=== PATIENT | female | born 2000 | race Caucasian/White ===

== ENCOUNTER 2021-10-03 00:48 | Observation (INO) ==
[2021-10-03] MEDS ORDERED: MoRPHine SULFATE 4 MG/ML 1 ML CARP\\VIAL IV STA (01:04)
[2021-10-03] MEDS ORDERED: ONDANSETRON INJ 2 MG/ML 2 ML VIAL IV STA (01:04)
--- NOTE | 2021-10-03 01:18 | Emergency Department Note ---
History of Present Illness General Chief complaint: Abdominal Pain Stated complaint: ABDOMINAL PAIN UNDER RIBS,RT SHOULDER PAIN Time Seen by Provider: 10/03/21 00:56 Source: patient Mode of arrival: ambulatory Limitations: no limitations History of Present Illness Maximum Pain Intensity: 10 Patient is a 21-year-old female who presents to the emergency department for evaluation of right-sided abdominal/rib pain. Patient reports that this started about 1 week ago. She reports severe pain rated a 10/10. Pain is worse with a deep breath and she states she is now unable to take a deep breath. She states that 1 month ago, she had "a charley horse" in her left thigh. She does admit she started a new control pill prior to the onset of the symptoms. She stopped that once she developed this pain. She denies any history or family history of blood clots. She is not a smoker but does vape. She denies recent travel or immobilization. Home Medications Medication Instructions Recorded Confirmed Type No Known Home Medications 07/20/19 09/30/21 History Allergies Allergy/AdvReac Type Severity Reaction Status Date / Time cefdinir [From Omnicef] Allergy Mild Rash Verified 10/03/21 06:04 Past Med/Surg History Medical History No pertinent past medical history Surgical History No pertinent past surgical history Social History Smoking Status: Current every day smoker Tobacco Type: E-cigarettes / Vaping Second Hand Exposure: No; Do You Dip or Chew Tobacco: No; Tobacco Cessation Education Requested by Patient: No Hx Alcohol Use: Yes Alcohol type: wine and hard liquor Hx Substance Use: Yes (medical card) Last Used Substance: Just Prior to Arrival Preferred Language: Nepali Communication Ability: Effective Control Officer Manager Required: No Beliefs That Will Affect Care: None Current Living Situation: Other Current Living Situation Comment: roomate Other Information That Helps Us Care for You: No Feels Safe at Home: Yes Safety Concerns: Feels Safe At This Time Assistive Devices: None Review of Systems A total of 10 systems reviewed and were otherwise negative Physical Exam Vital Signs Vital Signs - 24 hr 10/03/21 00:49 10/03/21 01:22 10/03/21 01:37 Temperature 37 C Temperature Source Temporal Artery Scan Pulse Rate 99 H Pulse Strength Normal Respiratory Rate 20 22 Respiratory Effort / Characteristics Non-Labored Respiratory Depth Normal Normal Respiratory Pattern Regular Blood Pressure 123/68 Blood Pressure [Right Arm] 125/88 Blood Pressure Mean 86 Blood Pressure Mean [Right Arm] 100 Blood Pressure Position Sitting Blood Pressure Position [Right Arm] Sitting Pulse Oximetry 98 97 Oxygen Delivery Method Room Air Room Air Room Air Sepsis Recent Fever Within 48 Hours No Sepsis New/Unexplained Change in Mental Status N/A Sepsis Action Taken by Nursing No Action Required 10/03/21 03:00 Temperature Temperature Source Pulse Rate Pulse Strength Respiratory Rate 18 Respiratory Effort / Characteristics Non-Labored Respiratory Depth Normal Respiratory Pattern Regular Blood Pressure Blood Pressure [Right Arm] 114/73 Blood Pressure Mean Blood Pressure Mean [Right Arm] 86 Blood Pressure Position Blood Pressure Position [Right Arm] Sitting Pulse Oximetry 95 Oxygen Delivery Method Room Air Sepsis Recent Fever Within 48 Hours Sepsis New/Unexplained Change in Mental Status Sepsis Action Taken by Nursing VITALS: Vitals are noted on the nurse's note and reviewed by myself. GENERAL: This is a 21-year-old female, crying, holding her right side, uncomfortable appearing. SKIN: The skin was without rashes. EARS: External auditory canals clear, tympanic membranes pearly swanson without erythema or effusion bilaterally. EYES: Pupils equal round and reactive to light and accommodation. MOUTH: Mucous membranes moist. NECK: Supple without nuchal rigidity. HEART: Regular rate and rhythm without murmurs gallops or rubs. LUNGS: Clear to auscultation bilaterally without wheezes, rales or rhonchi. No retractions or accessory muscle use. ABDOMEN: Positive bowel sounds x 4. Noticed to palpation in the right upper quadrant. NEURO: Patient was alert and oriented to person place and time. Course Consultations Consultation #1: Dr. Hirsch - general surgery Time: 03:10 Administered Medications Lactated Ringer's (Lr) 1,000 mls @ 125 mls/hr IV .Q8H LELA Stop: 11/02/21 05:23 Last Admin: 10/03/21 05:46 Dose: 125 mls/hr Documented by: [id number] Discontinued Medications Hydromorphone HCl (Hydromorphone Inj 0.5 Mg/0.5 Ml Syr) 0.5 mg IV NOW STA Stop: 10/03/21 02:07 Last Admin: 10/03/21 02:09 Dose: 0.5 mg Documented by: [id number] Ampicillin Sodium/Sulbactam Sodium 3,000 mg/ Sodium Chloride 108 mls @ 200 mls/hr IV NOW STA; Protocol Stop: 10/03/21 03:47 Last Infusion: 10/03/21 04:35 Dose: 0 mls/hr Documented by: [id number] Admin: 10/03/21 03:35 Dose: 200 mls/hr Documented by: [id number] Sodium Chloride (Nss 1000ml) 1,000 mls @ 999 mls/hr IV .Q1H1M ONE Stop: 10/03/21 05:04 Last Infusion: 10/03/21 05:10 Dose: 0 mls/hr Documented by: [id number] Admin: 10/03/21 04:35 Dose: 999 mls/hr Documented by: [id number] Ioversol (Optiray 320 125ml) 125 ml IV ONCE ONE Stop: 10/03/21 02:07 Last Admin: 10/03/21 02:07 Dose: 117 ml Documented by: [id number] Morphine Sulfate (Morphine Sulfate 4 Mg/Ml 1 Ml Carp\\Vial) 4 mg IV NOW STA Stop: 10/03/21 01:05 Last Admin: 10/03/21 01:21 Dose: 4 mg Documented by: [id number] Ondansetron HCl (Ondansetron Inj 2 Mg/Ml 2 Ml Vial) 4 mg IV NOW STA Stop: 10/03/21 01:05 Last Admin: 10/03/21 01:21 Dose: 4 mg Documented by: [id number] Medical Decision Making Differential Diagnosis Differential diagnosis includes PE, pneumonia, herpes zoster, cholecystitis, choledocholithiasis, pancreatitis, hepatitis, bowel obstruction, ovarian torsion, ectopic , among others. Home Medications Current Medication List: was personally reviewed by me Laboratory Data Attestation: I reviewed the patient's lab results. Result diagrams: 10/03/21 01:24 10/03/21 01:24 Lab Results 10/03/21 10/03/21 10/03/21 Range/Units 01:24 01:24 01:24 WBC 12.18 H (4.8-10.8) K/uL RBC 4.58 (4.2-5.4) M/uL Hgb 13.3 (12.0-16.0) g/dL Hct 40.1 (37-47) % MCV 87.6 (80-100) fL MCH 29.0 (25-34) pg MCHC 33.2 (32-36) g/dL RDW Std Deviation 43.5 (36.4-46.3) fL RDW Coeff of Yahir 13.6 (11.5-14.5) % Plt Count 366 (130-400) K/uL MPV 10.8 H (7.4-10.4) fL Immature Gran % (Auto) 0.2 % Neut % (Auto) 69.2 % Lymph % (Auto) 18.1 % Sevier % (Auto) 8.9 % Eos % (Auto) 3.4 % Baso % (Auto) 0.2 % Neut # (Auto) 8.41 H (1.4-6.5) K/uL Lymph # (Auto) 2.21 (1.2-3.4) K/uL Sevier # (Auto) 1.09 H (0.11-0.59) K/uL Eos # (Auto) 0.41 (0-0.5) K/uL Baso # (Auto) 0.03 (0-0.2) K/uL Immature Gran # (Auto) 0.03 H (0.00-0.02) K/uL Sodium 136 (136-145) mmol/L Potassium 3.5 (3.5-5.1) mmol/L Chloride 103 (98-107) mmol/L Carbon Dioxide 26 (21-32) mmol/L Anion Gap 7 (3-11) BUN 10 (6-23) mg/dl Creatinine 0.60 (0.6-1.2) mg/dl Est Cr Clr Drug Dosing 130.2 ml/min Est GFR ( Amer) 148.9 ml/min Est GFR (Non-Af Amer) 128.5 ml/min BUN/Creatinine Ratio 16.7 (10-20) Glucose 91 (70-99(Fasting)) mg/dl Calcium 9.3 (8.5-10.1) mg/dl Total Bilirubin 0.5 (0.2-1.0) mg/dl AST 13 (13-39) U/L ALT 12 (7-52) U/L Alkaline Phosphatase 76 (34-104) U/L Troponin I High Sens < 2.3 (0-14) pg/ml Total Protein 7.9 (6.0-8.3) gm/dl Albumin 3.9 (3.4-5.0) gm/dl Globulin 4.0 (2.5-4.0) gm/dl Albumin/Globulin Ratio 1.0 (0.9-2) Lipase 13 (11-82) U/L HCG, Qual Negative (Negative) Urine Color Urine Appearance (Clear) Urine pH (4.5-7.5) Ur Specific [place] (1.000-1.030) Urine Protein (Negative) Urine Glucose (UA) (Negative) Urine Ketones (Negative) Urine Blood (Negative) Urine Nitrite (Negative) Urine Bilirubin (Negative) Urine Urobilinogen (Negative) Ur Leukocyte Esterase (Negative) Urine WBC (Auto) (0-5) /hpf Urine RBC (Auto) (0-4) /hpf U Hyaline Cast (Auto) (0-5) /lpf U Epithel Cells (Auto) (0-5) /lpf Urine Bacteria (Auto) (Negative) 10/03/21 Range/Units 02:36 WBC (4.8-10.8) K/uL RBC (4.2-5.4) M/uL Hgb (12.0-16.0) g/dL Hct (37-47) % MCV (80-100) fL MCH (25-34) pg MCHC (32-36) g/dL RDW Std Deviation (36.4-46.3) fL RDW Coeff of Yahir (11.5-14.5) % Plt Count (130-400) K/uL MPV (7.4-10.4) fL Immature Gran % (Auto) % Neut % (Auto) % Lymph % (Auto) % Sevier % (Auto) % Eos % (Auto) % Baso % (Auto) % Neut # (Auto) (1.4-6.5) K/uL Lymph # (Auto) (1.2-3.4) K/uL Sevier # (Auto) (0.11-0.59) K/uL Eos # (Auto) (0-0.5) K/uL Baso # (Auto) (0-0.2) K/uL Immature Gran # (Auto) (0.00-0.02) K/uL Sodium (136-145) mmol/L Potassium (3.5-5.1) mmol/L Chloride (98-107) mmol/L Carbon Dioxide (21-32) mmol/L Anion Gap (3-11) BUN (6-23) mg/dl Creatinine (0.6-1.2) mg/dl Est Cr Clr Drug Dosing ml/min Est GFR ( Amer) ml/min Est GFR (Non-Af Amer) ml/min BUN/Creatinine Ratio (10-20) Glucose (70-99(Fasting)) mg/dl Calcium (8.5-10.1) mg/dl Total Bilirubin (0.2-1.0) mg/dl AST (13-39) U/L ALT (7-52) U/L Alkaline Phosphatase (34-104) U/L Troponin I High Sens (0-14) pg/ml Total Protein (6.0-8.3) gm/dl Albumin (3.4-5.0) gm/dl Globulin (2.5-4.0) gm/dl Albumin/Globulin Ratio (0.9-2) Lipase (11-82) U/L HCG, Qual (Negative) Urine Color Yellow Urine Appearance Clear (Clear) Urine pH 6.5 (4.5-7.5) Ur Specific [place] > 1.030 H (1.000-1.030) Urine Protein Trace H (Negative) Urine Glucose (UA) Negative (Negative) Urine Ketones 1+ H (Negative) Urine Blood Trace H (Negative) Urine Nitrite Negative (Negative) Urine Bilirubin Negative (Negative) Urine Urobilinogen Negative (Negative) Ur Leukocyte Esterase Negative (Negative) Urine WBC (Auto) 5-10 H (0-5) /hpf Urine RBC (Auto) 0-4 (0-4) /hpf U Hyaline Cast (Auto) 0 (0-5) /lpf U Epithel Cells (Auto) >30 H (0-5) /lpf Urine Bacteria (Auto) Negative (Negative) Imaging Data Attestation: I personally reviewed and interpreted this imaging study as follows: Radiologist's Impression: CT ABDOMEN & PELVIS With Contrast: Inflammatory changes and trace free fluid are visualized in the right lower quadrant surrounding the appendix which is mildly dilated to 7 mm, suspicious for acute appendicitis. Inflammatory changes extend into the anterior pelvis and cranially along the right paracolic gutter. There is a punctate extraluminal 3 mm calcification anterior to the appendix which raises the possibility of a contained perforation, however no extraluminal gas is present. No definite organized abscess is seen. Borderline wall thickening of the ascending colon may be reactive versus due to underlying colitis. No radiodense gallstones or gallbladder distention. No hydronephrosis. Liver, pancreas, adrenal glands and spleen are unremarkable. CTA CHEST: No evidence of PE. Lungs are clear. No pleural effusions. No adenopathy. Heart size is normal. Aorta is unremarkable. Radiologist:Caryn Sanderson M.D. ECG Data Attestation: I personally reviewed and interpreted this ECG as follows: Indication: + chest pain Rate (beats per minute): 88 Rhythm: + normal sinus ECG Intervals/blocks: + Normal QRS ECG ST segments: + Nonspecific ST abnormalities Comparison ECG Date: no prior available MDM Narrative Continuous monitor car operator: Order was placed for continuous monitor car operator. Patient was placed on the monitor car operator. Patient was noted to be in normal sinus rhythm at an initial rate of 90 bpm. The patient is a 21-year-old female who presents today complaining of right- sided rib/abdominal pain. I was initially suspicious for PE, as patient stated she had recent cramping in her thigh, shoulder pain and had recently started a control pill. Labs revealed a leukocytosis of 12,000, but were otherwise unremarkable. CT of the chest and abdomen/pelvis were performed. Patient was actually found to have acute appendicitis, could not rule out a small contained perforation. I discussed the case with the general surgeon on-call, Dr. Hirsch, who agreed to evaluate the patient and take her to the OR in the morning. She was given a dose of Unasyn. She does have a listed allergy to cefdinir but states that she has taken penicillins in the past without any difficulty. Patient was informed of all findings. Impression & Plan Acute appendicitis Discharge Plan Visit Data Chief Complaint: Abdominal Pain Stated Complaint: ABDOMINAL PAIN UNDER RIBS,RT SHOULDER PAIN ED Midlevel Provider: Jania Jessica Discharge Problem: Acute appendicitis Patient Disposition: Admitted As Inpatient Discharge Instructions Interventions: ED Discharge Assessment Last Done: 10/03/21 05:08
[2021-10-03 01:39] LABS: Basophils # (auto) 0.03 K/uL (0-0.2); Basophils % (auto) 0.2 %; Eosinophils # (auto) 0.41 K/uL (0-0.5); Eosinophils % (auto) 3.4 %; Hematocrit (blood only) 40.1 % (37-47); Hemoglobin 13.3 g/dL (12.0-16.0); Immature Granulocytes # (auto) 0.03 K/uL (0.00-0.02); Immature Granulocytes % (auto) 0.2 %; Lymphocytes # (auto) 2.21 K/uL (1.2-3.4); Lymphocytes % (auto) 18.1 %; Mean Corpuscular Hgb Conc 33.2 g/dL (32-36); Mean Corpuscular Volume 87.6 fL (80-100); Mean Platelet Volume 10.8 fL (7.4-10.4); Monocytes # (auto) 1.09 K/uL (0.11-0.59); Monocytes % (auto) 8.9 %; Neutrophils # (auto) 8.41 K/uL (1.4-6.5); Neutrophils % (auto) 69.2 %; Platelet Count 366 K/uL (130-400); RDW Coefficient of Variation 13.6 % (11.5-14.5); RDW Standard Deviation 43.5 fL (36.4-46.3); Red Blood Count 4.58 M/uL (4.2-5.4); White Blood Count 12.18 K/uL (4.8-10.8)
[2021-10-03 02:02] LABS: Alanine Aminotransferase 12 U/L (7-52); Albumin Level 3.9 gm/dl (3.4-5.0); Alkaline Phosphatase 76 U/L (34-104); Anion Gap 7 (3-11); Aspartate Aminotransferase 13 U/L (13-39); BUN Creatinine Ratio 16.7 (10-20); Bilirubin,Total 0.5 mg/dl (0.2-1.0); Blood Urea Nitrogen 10 mg/dl (6-23); Calcium 9.3 mg/dl (8.5-10.1); Carbon Dioxide 26 mmol/L (21-32); Chloride 103 mmol/L (98-107); Creatinine Clr Calc Pharmacy 130.2 ml/min; Est GFR (African American) 148.9 ml/min; Est GFR (Non-African American) 128.5 ml/min; Glucose 91 mg/dl (70-99(Fasting)); Lipase 13 U/L (11-82); Potassium 3.5 mmol/L (3.5-5.1); Sodium 136 mmol/L (136-145); Total Protein 7.9 gm/dl (6.0-8.3)
[2021-10-03 02:03] LABS: Troponin I High Sensitivity < 2.3 pg/ml (0-14)
[2021-10-03] MEDS ORDERED: HYDROmorphone INJ 0.5 MG/0.5 ML SYR IV STA (02:06)
[2021-10-03] MEDS ORDERED: OPTIRAY 320 125ml IV ONE (02:06)
[2021-10-03 02:26] LABS: Pregnancy Test, Serum Negative (Negative)
[2021-10-03 03:10] LABS: Appearance Urine Clear (Clear); Bacteria Urine Automated Negative (Negative); Bilirubin Urine Negative (Negative); Blood Urine Trace (Negative); Color Urine Yellow; Epithelial Cell Urine Auto >30 /lpf (0-5); Glucose Urine UA Negative (Negative); Ketones Urine 1+ (Negative); Leukocyte Esterase Urine Negative (Negative); Nitrite Urine Negative (Negative); Protein Urine Trace (Negative); RBC Urine Automated 0-4 /hpf (0-4); Urobilinogen Urine Negative (Negative); pH Urine 6.5 (4.5-7.5)
[2021-10-03 03:12] LABS: Specific Gravity Urine > 1.030 (1.000-1.030)
[2021-10-03] MEDS ORDERED: AMPICILLIN/SULBACTAM SOD 3,000 MG in 0.9 % SODIUM CHLORIDE 100 ML IV STA (03:15)
[2021-10-03 03:27] LABS: Cast Urine Automated 0 /lpf (0-5)
[2021-10-03] MEDS ORDERED: SODIUM CHLORIDE 0.9% 1000ML 1,000 ML IV ONE (04:04)
[2021-10-03] MEDS ORDERED: HYDROmorphone INJ 0.5 MG/0.5 ML SYR IV PRN (05:24)
[2021-10-03] MEDS ORDERED: ONDANSETRON INJ 2 MG/ML 2 ML VIAL IV PRN (05:24)
[2021-10-03] MEDS: LACTATED RINGER'S 1,000 ML IV SCH ×3 (05:46→22:37)
[2021-10-03] MEDS: HYDROmorphone INJ 0.5 MG/0.5 ML SYR IV PRN ×3 (06:46→22:36)
--- NOTE | 2021-10-03 07:40 | CT Scan Report ---
CHEST CTA for PULMONARY ARTERIES CT DOSE: HISTORY: right rib/shoulder pain. TECHNIQUE: Multiaxial CT images of the chest were performed following the intravenous administration of contrast to evaluate the pulmonary arteries. Maximal intensity projection images were also obtaine d. A dose lowering technique was utilized adhering to the principles of ALARA. COMPARISON STUDY: None. FINDINGS: There is a normal caliber thoracic aorta with no evidence for dissection. There is no evide nce for pulmonary embolus. No pleural effusions. No pneumothorax. The liver and spleen are unremarkab le. No mediastinal or hilar lymphadenopathy. The central airways are patent. The lungs are clear. No rib fractures identified. IMPRESSION: No evidence for pulmonary embolus. ACT 112: Negative or not required by law. Electronically signed by: Antwon Sepulveda M.D. 10/03/2021 7:39 AM
--- NOTE | 2021-10-03 07:54 | CT Scan Report ---
ABDOMEN AND PELVIS CT WITH IV CONTRAST CT DOSE: 637.01 mGy.cm HISTORY: Right upper quadrant pain. right rib/shoulder pain TECHNIQUE: Multiaxial CT images of the abdomen and pelvis were performed following the use of intrave nous contrast. A dose lowering technique was utilized adhering to the principles of ALARA. COMPARISON STUDY: None. FINDINGS: The lung bases are clear. No fractures within the visualized osseous structures. The liver, gallbladder, spleen, adrenal glands, pancreas, and kidneys are unremarkable. No hydronephrosis. No r etroperitoneal lymphadenopathy. The main portal vein is patent. The bladder is decompressed but appea rs unremarkable. The appendix is visualized and appears normal in caliber scattered foci of gas withi n the appendix. This measures up to 5 mm in diameter. This does not appear to represent acute appendi citis. Trace fluid and inflammatory change appears to be secondary to the fluid and fat stranding thr oughout the pelvis. This favors a peritonitis. Endometriosis could also a similar appearance. Small a mount of fluid is seen within the pelvic cul-de-sac and right paracolic gutter with minimal enhanceme nt of the peritoneal lining. The uterus and left ovary are unremarkable. The right ovary is not well visualized. Matted loops of bowel within the right lower quadrant questionable thickening. There is a lso questionable areas of thickening within the left side of the colon. No dilated loops of bowel to suggest an obstruction. IMPRESSION: 1. Small amount of fluid within the pelvic cul-de-sac with mild enhancement of the peritoneal lining and mild fat stranding within the deep pelvis. Findings favor nonspecific peritonitis. Pelvic inflamm atory disease or endometriosis could also have a similar appearance. 2. Trace fluid and inflammatory change adjacent to the appendix which appears normal caliber and part ially fills with gas. This is likely reactive to the suspected peritonitis rather than an acute appen dicitis. 3. Matted loops of small bowel in the right lower quadrant with questionable mild thickening. This al so possible mild thickening within the descending colon. This could be reactive to the suspected ravi tonitis versus a mild enterocolitis. 4. These findings were discussed with Dr. Hirsch at 7:55 AM on 10/04/2019 ACT 112: Negative or not required by law. Electronically signed by: Antwon Sepulveda M.D. 10/03/2021 7:51 AM
--- NOTE | 2021-10-03 10:41 | History & Physical Report ---
Date of Service October 03, 2021 Assessment & Plan (1) Abdominal pain: Plan: WBC elevated, CT not definitive for appendicitis and pain has been going on for some time. Will ask DIE KEEPER to to evaluate given ? PID on CT and has also not had visit Continue Unasyn and NPO for now seen with Dr. Hirsch as above. history vague. discussed CT with Dr. Sepulveda who states there is peritonitis but not appendicitis. suspects PID vs endometriosis vs possible enteritis. pt with no post care from 6 months ago, new sexual partners ( states use condom), put herself on and then off oral contraceptives online, has history of genital herpes as well. continue unasyn. will consult gyne. monitor symptoms/labs. will keep npo until seen by gyne. Admission and Anticipated Discharge Date Admission Date: October 03, 2021 History of Present Illness Primary Care Provider: NO PCP 21 y/o female 6 mos with left side abdominal pain that began about a month ago. She had started a new OCP from on online pharmacy a few days prior which she then stopped. Pain has changed in location and character several times over the last month and has increased over the past week. She had some right sided pain last night, was unable to work and was brought to the ED by her manager net. LMP was two weeks ago. Her baby is a home with her (patients) father in [place]. Recently relocated back to [place] from [place]. She was admitted overnight after STAT-Rad report suggested appendicitis, in house review however does not appear as appendicitis. Allergies Allergy/AdvReac Type Severity Reaction Status Date / Time cefdinir [From Omnicef] Allergy Mild Rash Verified 10/03/21 06:04 Home Medications Medication Instructions Recorded Confirmed Type No Known Home Medications 07/20/19 09/30/21 History Past Med/Surg History Medical History No pertinent past medical history Surgical History No pertinent past surgical history Social History Smoking Status: Current every day smoker Tobacco Type: E-cigarettes / Vaping Second Hand Exposure: No; Do You Dip or Chew Tobacco: No; Tobacco Cessation Education Requested by Patient: No Hx Alcohol Use: Yes Alcohol type: wine and hard liquor Hx Substance Use: Yes (medical card) Last Used Substance: Just Prior to Arrival Preferred Language: Divehi Communication Ability: Effective Baseball Sewer Hand Required: No Beliefs That Will Affect Care: None Current Living Situation: Other Current Living Situation Comment: roomate Other Information That Helps Us Care for You: No Feels Safe at Home: Yes Safety Concerns: Feels Safe At This Time Assistive Devices: None Review of Systems Constitutional: no fever, no chills, no sweats, no malaise and no anorexia Gastrointestinal: + abdominal pain; no nausea, no vomiting, no change in bowel habits and no diarrhea/loose stools Genitourinary: + flank pain (left); no dysuria, no urinary frequency, no dysmenorrhea and no vaginal discharge Physical Exam Constitutional: WD/WN, vitals as above Respiratory: normal respiratory effort, lungs clear to auscultation Cardiovascular: RRR, no murmur, no edema Gastrointestinal (Abdomen): Inspection/Auscultation: abdomen not distended Percussion/Palpation: + abdomen tender, + guarding and abdomen soft Skin: no rashes, warm and dry Results & Data Results & Data ([facility]) Vital Signs (Past 12 Hours) Vital Signs Temp Pulse Pulse Resp BP BP Pulse Ox 10/03/21 08:01 36.5 C 66 16 115/69 100 10/03/21 05:30 36.7 C 82 16 94/59 L 100 10/03/21 05:26 36.7 C 82 16 99/59 L 100 10/03/21 04:51 95 10/03/21 03:00 18 114/73 95 10/03/21 01:37 22 125/88 97 10/03/21 00:49 37 C 99 H 20 123/68 98 Code Status & VTE Plan VTE Prophylaxis Plan VTE Prophylaxis will be ordered: Yes PG Care Time/CCT Total # of Minutes Spent Total Time Spent with Patient: Total time spent is greater than 50% in coordination of care (as documented) at patient's floor/unit and/or counseling patient: Coding Level of Care Code 92076 Initial Inpt Care Lvl 1 Diagnoses Abdominal pain R10.9
[2021-10-03] MEDS: AMPICILLIN/SULBACTAM SOD 1,500 MG in 0.9 % SODIUM CHLORIDE 100 ML IV SCH ×3 (11:38→21:16)
--- NOTE | 2021-10-03 14:10 | Electrocardiogram Report ---
Test Reason : Blood Pressure : / mmHG Vent. Rate : 088 BPM Atrial Rate : 088 BPM P-R Int : 136 ms QRS Dur : 078 ms QT Int : 370 ms P-R-T Axes : 057 083 023 degrees QTc Int : 447 ms Poor data quality, interpretation may be adversely affected Normal sinus rhythm Normal ECG No previous ECGs available Confirmed by Ben De La Torre ([id number]) on 10/03/2021 2:10:29 PM Referred By: REFERRED SELF Confirmed By:Ravin De La Torre
--- NOTE | 2021-10-03 14:43 | Ultrasound Report ---
US pelvic complete CLINICAL HISTORY: EVAL for PID TECHNIQUE: Real-time sonographic images of the pelvic contents were obtained with transabdominal and transvaginal technique. Comparison: Comparison is made to CT abdomen pelvis 418 2 FINDINGS: The uterus measures 7.8 x 3.2 x 3.9 cm. The endometrial cavity echo stripe measures 0.3 cm in thickne ss. The uterus is normal in appearance. The right ovary measures 3.9 x 2.5 x 2.6 cm. The left ovary measures 3.1 x 2.4 x 2.4 cm. Normal appea trixie of the ovaries bilaterally. There was a small amount of free fluid about the right adnexa. No free fluid is seen in the upper abd omen. The gallbladder is without stones. Dupree's sign is negative. IMPRESSION: No acute abnormality and in particular no evidence of tubo-ovarian abscess. Nonspecific small free fl uid in the right adnexa. Of note, ultrasound is not sensitive for pelvic inflammatory disease, correl ation with lab testing is recommended. ACT 112: Negative or not required by law. Electronically signed by: Michael Vazquez M.D. 10/03/2021 2:42 PM
[2021-10-03] MEDS ORDERED: ACETAMINOPHEN 325 MG TAB ONE (17:25)
[2021-10-03] MEDS: ACETAMINOPHEN 325 MG TAB PO PRN (17:41)
--- NOTE | 2021-10-03 19:52 | OB/GYN Consultation ---
Date of Consultation October 03, 2021 Assessment & Plan (1) Abdominal pain: Parish is a 21-year-old who presents to the emergency department yesterday and has admitted by the general surgery service for acute on chronic abdominal pain. Abdominal pain is most significant in the right upper quadrant radiating to right shoulder. Patient was noted have a benign pelvic exam today. No signs of pelvic inflammatory disease noted on exam, vitals or ultrasound. Patient's pelvic pain is of unclear etiology but does not appear to be environmental inspector in nature. Collected a gonorrhea, chlamydia and trich swap today. Will await results and provide treatment as indicated. Will sign off at this time but will be available as needed. History of Present Illness Attending Physician: Jono Hirsch, History of Present Illness Parish is a 21-year-old approximately 6 months status post delivery. patient admitted for right upper quadrant tenderness radiating to her right shoulder. Patient underwent CT scan which showed Non specific findings including a small amount of fluid in the posterior cul-de-sac and inflammatory type changes the peritoneum in the pelvis. In discussion with the patient she reports that she has severe right upper quadrant pain which radiates to her right shoulder. She is reporting some mild lower right pelvic tenderness. Patient reports that she started having pain initially about 1 month ago which started her right hip and the about 1 week ago went to the right lower quadrant and right shoulder. She patient is denying any abnormal vaginal discharge. Patient reports that she was diagnosed with Chlamydia during her with test of cure noted at 36 weeks. Patient denies any new partner since that time. Patient is dying any fevers chills or night sweats. Patient denying any nausea or vomiting. patient had a normal appearing transvaginal ultrasound Allergies Allergy/AdvReac Type Severity Reaction Status Date / Time cefdinir [From Omnicef] Allergy Mild Rash Verified 10/03/21 06:04 Home Medications Medication Instructions Recorded Confirmed Type No Known Home Medications 07/20/19 09/30/21 History Patient History Medical History No pertinent past medical history Surgical History No pertinent past surgical history Social History Smoking Status: Current every day smoker Tobacco Type: E-cigarettes / Vaping Second Hand Exposure: No; Do You Dip or Chew Tobacco: No; Tobacco Cessation Education Requested by Patient: No Hx Alcohol Use: Yes Alcohol type: wine and hard liquor Hx Substance Use: Yes (medical card) Last Used Substance: Just Prior to Arrival Preferred Language: Indonesian Communication Ability: Effective 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: No Beliefs That Will Affect Care: None Current Living Situation: Other Current Living Situation Comment: roomate Other Information That Helps Us Care for You: No Feels Safe at Home: Yes Safety Concerns: Feels Safe At This Time Assistive Devices: None Physical Exam Genitourinary: Speculum/Bimanual Exam: normal appearance of the vagina, normal appearance of the cervix and + adnexal tenderness ( Mild right); no cervical tenderness, no cervical motion tenderness, uterus not enlarged, uterus nontender, no cul-de-sac fullness, no cul-de-sac tenderness and no cul-de-sac nodularity There was noted be normal appearing vagina and cervix on speculum exam. No abnormal discharge appreciated. On pelvic exam there was noted be no cervical motion tenderness. No significant pelvic tenderness noted. Patient reported mild right tenderness but otherwise am was unremarkable. Results & Data ([facility]) Vital Signs (Past 12 Hours) Vital Signs Temp Pulse Resp BP Pulse Ox 10/03/21 15:39 36.6 C 75 16 116/68 99 10/03/21 08:01 36.5 C 66 16 115/69 100 PG Care Time/CCT Total # of Minutes Spent Total Time Spent with Patient: Total time spent is greater than 50% in coordination of care (as documented) at patient's floor/unit and/or counseling patient: Coding Level of Care Code 21020 Inpt Consult Level 4 Diagnoses Abdominal pain R10.9
[2021-10-04] MEDS: HYDROmorphone INJ 0.5 MG/0.5 ML SYR IV PRN ×5 (02:40→21:15)
[2021-10-04] MEDS: AMPICILLIN/SULBACTAM SOD 1,500 MG in 0.9 % SODIUM CHLORIDE 100 ML IV SCH ×2 (05:00→09:44)
[2021-10-04] MEDS: LACTATED RINGER'S 1,000 ML IV SCH ×2 (05:35→19:45)
[2021-10-04 06:37] LABS: Basophils # (auto) 0.03 K/uL (0-0.2); Basophils % (auto) 0.2 %; Eosinophils # (auto) 0.32 K/uL (0-0.5); Eosinophils % (auto) 2.5 %; Hematocrit (blood only) 38.4 % (37-47); Hemoglobin 12.4 g/dL (12.0-16.0); Immature Granulocytes # (auto) 0.02 K/uL (0.00-0.02); Immature Granulocytes % (auto) 0.2 %; Lymphocytes % (auto) 23.1 %; Mean Corpuscular Hemoglobin 29.3 pg (25-34); Mean Corpuscular Hgb Conc 32.3 g/dL (32-36); Mean Corpuscular Volume 90.8 fL (80-100); Mean Platelet Volume 11.2 fL (7.4-10.4); Monocytes # (auto) 1.09 K/uL (0.11-0.59); Monocytes % (auto) 8.7 %; Neutrophils % (auto) 65.3 %; Platelet Count 340 K/uL (130-400); RDW Coefficient of Variation 13.7 % (11.5-14.5); RDW Standard Deviation 45.3 fL (36.4-46.3); Red Blood Count 4.23 M/uL (4.2-5.4); White Blood Count 12.56 K/uL (4.8-10.8)
[2021-10-04] MEDS: ACETAMINOPHEN 325 MG TAB PO PRN (07:28)
--- NOTE | 2021-10-04 08:22 | Surgery Progress Note ---
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 still having pain. wbc still 12,000. discussed options and risks ( bleeding/infection/blood clots/injury to another organ/etc....). questions answered. pt agreeable. will proceed today with diagnostic laparoscopy, appendectomy, surgery as indicated. Admission and Anticipated Discharge Date Admission Date: October 03, 2021 Subjective still having RLQ pain and right shoulder pain, chills Physical Exam Gastrointestinal (Abdomen): Inspection/Auscultation: abdomen not distended Percussion/Palpation: + abdomen tender (RLQ) and abdomen soft Results & Data ([facility]) Vital Signs (Past 12 Hours) Vital Signs Temp Pulse Resp BP Pulse Ox 10/04/21 07:49 36.7 C 70 16 114/75 99 10/03/21 23:00 36.4 C L 60 16 101/64 97 PG Care Time/CCT Total # of Minutes Spent Total Time Spent with Patient: Total time spent is greater than 50% in coordination of care (as documented) at patient's floor/unit and/or counseling patient: Coding Level of Care Code 91411 Subseq Hosp Care Lvl 3 Diagnoses Abdominal pain R10.9
--- NOTE | 2021-10-04 09:01 | Anesthesiology Consultation ---
Date of Service October 04, 2021 Assessment & Plan (1) Encounter for pre-operative examination: Chart Review Chart Review: Acceptable Risk for Surgery and Patient NOT seen in Pre Admission Testing Consults Requested none History Surgery Operation Date: 10/03/21 08:20 Proposed Procedures p Laparoscopic Appendectomy - Jono Hirsch DO Operation Date: 10/04/21 10:40 Proposed Procedures p Laparoscopic Appendectomy - Jono Hirsch, Height/Weight Height: 5 ft Weight: 75.6 kg Allergies Allergy/AdvReac Type Severity Reaction Status Date / Time cefdinir [From Omnicef] Allergy Mild Rash Verified 10/03/21 06:04 Medications Home Medications Medication Instructions Recorded Confirmed Last Taken No Known Home Medications 07/20/19 09/30/21 Unknown Active Medications Generic Name Dose Route Start Last Admin Trade Name Freq PRN Reason Stop Dose Admin Acetaminophen 650 mg 10/03/21 17:17 10/04/21 07:28 Acetaminophen 325 Mg Tab PO 11/02/21 17:16 650 mg Q6H PRN Administration Pain Hydromorphone HCl 0.5 mg 10/03/21 05:24 10/04/21 05:34 Hydromorphone Inj 0.5 Mg/0.5 Ml Syr IV 10/17/21 05:23 0.5 mg Q3H PRN Administration Pain (6,7,8,9,10) Lactated Ringer's 1,000 mls @ 125 mls/hr 10/03/21 05:24 10/04/21 05:35 Lr IV 11/02/21 05:23 125 mls/hr .Q8H LELA Administration Ampicillin Sodium/Sulbactam 104 mls @ 200 mls/hr 10/03/21 10:00 10/04/21 05:35 Sodium 1,500 mg/ Sodium IV 10/13/21 09:59 Infused Chloride Q6H LELA Infusion Protocol NPO Date Last Intake of Fluids: 10/04/21 Time Last Intake of Fluids: 07:30 Last Intake of Fluids Comment: scant H2O to swallow tylenol PO Date Last Intake of Solids: 10/03/21 Time Last Intake of Solids: 23:59 Past Medical History Medical History No pertinent past medical history Past Surgical History Surgical History No pertinent past surgical history Social History Smoking Status: Current every day smoker tobacco type: e-cigarettes Do You Dip or Chew Tobacco: No Hx Alcohol Use: Yes Alcohol type: wine and hard liquor alcohol intake frequency: holidays/special occasions only Hx Substance Use: Yes (medical card) substance use type: marijuana Last Used Substance: Just Prior to Arrival Physical Exam Vital Signs Last Vital Signs Temp 36.7 C 10/04/21 07:49 Pulse 70 10/04/21 07:49 Resp 16 10/04/21 07:49 BP 114/75 10/04/21 07:49 Pulse Ox 99 10/04/21 07:49 Testing Laboratory Results 10/04/21 05:41 10/03/21 01:24 Urine Color Yellow 10/03/21 02:36 Urine Appearance Clear (Clear) 10/03/21 02:36 Urine pH 6.5 (4.5-7.5) 10/03/21 02:36 Ur Specific [place] > 1.030 (1.000-1.030) H 10/03/21 02:36 Urine Protein Trace (Negative) H 10/03/21 02:36 Urine Glucose (UA) Negative (Negative) 10/03/21 02:36 Urine Ketones 1+ (Negative) H 10/03/21 02:36 Urine Nitrite Negative (Negative) 10/03/21 02:36 Ur Leukocyte Esterase Negative (Negative) 10/03/21 02:36 Urine WBC (Auto) 5-10 /hpf (0-5) H 10/03/21 02:36 Urine RBC (Auto) 0-4 /hpf (0-4) 10/03/21 02:36 U Hyaline Cast (Auto) 0 /lpf (0-5) 10/03/21 02:36 U Epithel Cells (Auto) >30 /lpf (0-5) H 10/03/21 02:36 Urine Bacteria (Auto) Negative (Negative) 10/03/21 02:36
[2021-10-04] MEDS ORDERED: GLYCOPYRROLATE 0.2 MG/ML VIAL ONE (09:08)
[2021-10-04] MEDS ORDERED: LIDOCAINE 2% 2 ML VIAL/AMP(20MG/ML) INFIL ONE (09:08)
[2021-10-04] MEDS ORDERED: ONDANSETRON INJ 2 MG/ML 2 ML VIAL ONE (09:08)
[2021-10-04] MEDS ORDERED: PROPOFOL IV EMULSION 10 MG/ML 20 ML VIAL IV ONE (09:08)
[2021-10-04] MEDS ORDERED: ROCURONIUM BROMIDE 10 MG/ML 5 ML VIAL IV ONE (09:08)
[2021-10-04] MEDS ORDERED: NEOSTIGMINE METHYLSULFATE 1 MG/ML 10ML VIAL ONE (09:08)
[2021-10-04] MEDS ORDERED: MIDAZOLAM HCL 1 MG/ML 2ML VIAL ONE (09:09)
[2021-10-04] MEDS ORDERED: fentaNYL citrate 100 MCG/2 ML VIAL ONE ×3 (09:09→10:53)
[2021-10-04] MEDS ORDERED: EPINEPHrine INJ 1 MG/ML AMP ONE (09:18)
[2021-10-04] MEDS ORDERED: BUPIVACAINE 0.5 % 5 MG/1 ML MPF 30ML VIAL ONE (09:18)
[2021-10-04] MEDS ORDERED: ONDANSETRON INJ 2 MG/ML 2 ML VIAL IV PRN (10:21)
[2021-10-04] MEDS ORDERED: ATROPINE SULFATE 0.1 MG/ML 10ML SYR IV PRN (10:21)
[2021-10-04] MEDS ORDERED: ePHEDrine sulfate 50 MG/ML AMP IV PRN (10:21)
[2021-10-04] MEDS ORDERED: PROMETHAZINE HCL 12.5 MG in SODIUM CHLORIDE 0.9% 50 ML IV PRN (10:21)
[2021-10-04] MEDS ORDERED: ePHEDrine sulfate 50 MG/ML SYR ONE (10:36)
--- NOTE | 2021-10-04 10:55 | Operative Report ---
PG Post Operative Report Pre & Post Diagnosis Operation Date: 10/03/21 08:20 <No data on this case meets the specified criteria> Operation Date: 10/04/21 10:40 Pre-Op Diagnosis: APPENDICITIS Post-Op Diagnosis: peritonitis, suspect pelvic inflammatory disease. I identified the patient and participated in the time-out.: Yes Procedure Operation Date: 10/03/21 08:20 <No data on this case meets the specified criteria> Operation Date: 10/04/21 10:40 Actual Procedures p diagnostic laparoscopy, abdominal washout, laparoscopic Appendectomy(Not Applicable) - Jono Hirsch DO Surgeon Jono Hirsch DO Public Health Registrar de [facility] Estimated Blood Loss 10 Findings Consistent with Post-Op Diagnosis Specimens 1. fluid for cytology and culture/gram stain 2. appendix Description of Procedure After informed consent was obtained the patient was taken to the operating room and placed in supine position. After successful intubation a Mijares catheter was placed sterilely. The abdomen was then sterilely prepped and draped in usual fashion. A supraumbilical incision was made with 11 blade scalpel and carried down through the soft tissue using cautery. The anterior fascia was opened using cautery and two #0 Vicryl stay sutures were placed. Peritoneum was elevated with hemostats and incised under direct vision using a Metzenbaum scissor. Finger sweep was performed and a 12 mm Puri trocar was placed. The abdomen was insufflated to 18 mmHg. The laparoscope was inserted and the abdomen was examined in 360 degrees. We immediately noted a lot of peritoneal inflammation and cloudy purulent looking fluid both in the pelvis as well as the right upper quadrant under the right hemidiaphragm. A suprapubic 5 mm port and a left lower quadrant 12 mm port were placed under direct vision. We obtained about 20 cc of fluid from the pelvis to send for gram stain culture sensitivity and cytology. There were a lot of adhesions along the right side including the cecum. The terminal ileum was tightly adherent to the right ovary. I was able to gently and bluntly take down some of the bowel adhesions however I was unable to safely get the terminal ileum off of the right ovary and fallopian tube. The appendix itself was mildly inflamed. I suspect this is reactive. Nonetheless I used a [place] dissector to create a window in the mesentery. I transected the appendix at its base with the cecum using a ASHA white cartridge linear stapler. A second firing of a brown cartridge was used to take down the mesentery of the appendix. Was placed into a bag and removed. Thorough irrigation of the entire lower abdomen as well as along the right side and under the right hemidiaphragm was performed until all irrigant was clear. I did not see any indication of fat wrapping to suggest inflammatory bowel. I saw no evidence of endometriosis. Final irrigation was performed there was adequate hemostasis. The trochars were all removed and the abdomen desufflated. The fascia of the camera port as well as left lower quadrant were closed using 0 Vicryl in mitrib-ce-gtrso fashion. The wounds were all irrigated and closed using 4-0 Monocryl. Marcaine with epinephrine was injected around them for postoperative analgesia and skin glue used as a dressing. Patient was awakened extubated and transferred recovery in stable condition. My physician diploma dental assistant was present for the entire case and was instrumental in assisting for access to the abdomen running the camera during my dissection as well as with wound closure and dressing placement. I attest to the content of the Intraoperative Record and any orders documented therein. Any exceptions are noted below.
[2021-10-04] MEDS: fentaNYL citrate 100 MCG/2 ML VIAL IV PRN ×2 (11:04→11:10)
[2021-10-04] MEDS: HYDROmorphone INJ 1 MG/ML SYRINGE IV PRN ×8 (11:16→11:59)
[2021-10-04] MEDS ORDERED: HYDROmorphone INJ 2 MG/ML SYR/VIAL IV PRN (11:51)
[2021-10-04] MEDS ORDERED: fentaNYL citrate 100 MCG/2 ML VIAL IV PRN (11:51)
[2021-10-04] MEDS ORDERED: HYDROmorphone INJ 0.5 MG/0.5 ML SYR IV PRN (12:31)
--- NOTE | 2021-10-04 12:35 | Anesthesiology Progress Note ---
Date of Service October 04, 2021 Anesthesia Post Procedure Vital Signs Vital Signs: Temp Pulse Pulse Resp BP BP Pulse Ox 10/04/21 12:13 36.4 C L 60 15 124/69 99 10/04/21 12:05 57 L 14 115/70 99 10/04/21 11:55 84 22 129/74 97 10/04/21 11:45 73 24 119/61 96 10/04/21 11:35 88 23 117/71 95 10/04/21 11:25 79 23 104/81 99 10/04/21 11:15 83 24 129/84 100 10/04/21 11:05 80 17 113/76 100 10/04/21 10:59 36.0 C L 87 14 117/61 100 10/04/21 09:10 36.7 C 75 20 133/71 97 10/04/21 07:49 36.7 C 70 16 114/75 99 10/03/21 23:00 36.4 C L 60 16 101/64 97 10/03/21 15:39 36.6 C 75 16 116/68 99 Pain Intensity Right Lower Chest: Pain Intensity: 6 Abdomen: Pain Intensity: 4 Transfer of Care Handoff Completed per policy Notes Mental Status: alert / awake / arousable and participated in evaluation Patient Amnestic to Procedure: Yes Nausea / Vomiting: adequately controlled Pain: adequately controlled Airway Patency, RR, SpO2: stable & adequate BP & HR: stable & adequate Hydration State: stable & adequate Anesthetic Complications: no major complications apparent and Pt Satisfied with anesthetic care
[2021-10-04] MEDS ORDERED: diphenhydrAMINE 50 MG/ML VIAL IV STA (13:02)
[2021-10-04] MEDS: metroNIDAZOLE 500 MG/100 ML BAG IV ONE ×2 (13:03→13:27)
[2021-10-04] MEDS: cefTRIAXone SODIUM 1,000 MG in DEXTROSE 5% 50 ML IV SCH (15:05)
[2021-10-04] MEDS: DOXYCYCLINE HYCLATE 100 MG in DEXTROSE 5% 100 ML IV SCH ×2 (15:10→21:15)
[2021-10-04] MEDS ORDERED: KETOROLAC TROMETHAMINE 15 MG/ML VIAL IV PRN (15:52)
[2021-10-04] MEDS: metroNIDAZOLE 500 MG/100 ML BAG IV SCH (19:46)
[2021-10-04] MEDS: diphenhydrAMINE 50 MG/ML VIAL IV PRN (23:43)
[2021-10-05] MEDS: HYDROmorphone INJ 0.5 MG/0.5 ML SYR IV PRN ×3 (03:00→08:03)
[2021-10-05] MEDS: metroNIDAZOLE 500 MG/100 ML BAG IV SCH ×2 (03:02→11:52)
[2021-10-05] MEDS: LACTATED RINGER'S 1,000 ML IV SCH ×2 (03:54→09:13)
[2021-10-05] MEDS: diphenhydrAMINE 50 MG/ML VIAL IV PRN ×2 (04:46→09:15)
[2021-10-05 06:17] LABS: Basophils # (auto) 0.01 K/uL (0-0.2); Basophils % (auto) 0.1 %; Eosinophils # (auto) 0.03 K/uL (0-0.5); Eosinophils % (auto) 0.2 %; Hemoglobin 10.5 g/dL (12.0-16.0); Immature Granulocytes # (auto) 0.03 K/uL (0.00-0.02); Immature Granulocytes % (auto) 0.2 %; Lymphocytes # (auto) 1.63 K/uL (1.2-3.4); Lymphocytes % (auto) 11.9 %; Mean Corpuscular Hemoglobin 28.8 pg (25-34); Mean Corpuscular Hgb Conc 32.8 g/dL (32-36); Mean Corpuscular Volume 87.7 fL (80-100); Mean Platelet Volume 10.8 fL (7.4-10.4); Monocytes # (auto) 1.04 K/uL (0.11-0.59); Monocytes % (auto) 7.6 %; Platelet Count 309 K/uL (130-400); RDW Coefficient of Variation 13.5 % (11.5-14.5); RDW Standard Deviation 43.8 fL (36.4-46.3); Red Blood Count 3.65 M/uL (4.2-5.4); White Blood Count 13.74 K/uL (4.8-10.8)
[2021-10-05 06:37] LABS: Anion Gap 8 (3-11); BUN Creatinine Ratio 12.5 (10-20); Blood Urea Nitrogen 5 mg/dl (6-23); Calcium 8.8 mg/dl (8.5-10.1); Carbon Dioxide 22 mmol/L (21-32); Chloride 105 mmol/L (98-107); Creatinine Clr Calc Pharmacy 198.7 ml/min; Est GFR (African American) > 150.0 ml/min; Est GFR (Non-African American) 146.8 ml/min; Glucose 81 mg/dl (70-99(Fasting)); Potassium 3.8 mmol/L (3.5-5.1); Sodium 135 mmol/L (136-145)
[2021-10-05] MEDS: DOXYCYCLINE HYCLATE 100 MG in DEXTROSE 5% 100 ML IV SCH (08:03)
--- NOTE | 2021-10-05 08:59 | Surgery Progress Note ---
Date of Service October 05, 2021 Assessment & Plan (1) Status post laparoscopic appendectomy: Plan: I will let her go home. She needs to follow-up with me in 7 to 10 days. Cultures are still pending. We will send her home on antibiotics. Postoperative instructions given. Admission and Anticipated Discharge Date Admission Date: October 03, 2021 Subjective Patient seen. Feeling much better. Her abdominal and right shoulder pain have completely resolved. She would like to go home. Physical Exam Physical Exam: Alert. No acute distress Abdomen is soft with expected incisional tenderness. No peritonitis wounds look good Results & Data ([facility]) Vital Signs (Past 12 Hours) Vital Signs Temp Pulse Resp BP BP Pulse Ox 10/05/21 04:11 36.9 C 65 16 115/74 99 10/04/21 23:00 36.7 C 71 16 101/65 96 PG Care Time/CCT Total # of Minutes Spent Total Time Spent with Patient: Total time spent is greater than 50% in coordination of care (as documented) at patient's floor/unit and/or counseling patient: Coding Level of Care Code None Diagnoses Status post laparoscopic appendectomy Z90.49
--- NOTE | 2021-10-05 10:00 | Discharge Summary ---
Date of Service October 05, 2021 Admission HPI Per Admitting Provider 21 y/o female 6 mos with left side abdominal pain that began about a month ago. She had started a new OCP from on online pharmacy a few days prior which she then stopped. Pain has changed in location and character several times over the last month and has increased over the past week. 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 LMP was two weeks ago. Her baby is a home with her (patients) father in [place]. Recently relocated back to [place] from [place]. She was admitted overnight after STAT-Rad report suggested appendicitis, in house review however does not appear as appendicitis. Principal Diagnosis Acute appendicitis Discharge Exam Constitutional WD/WN, vitals as above Gastrointestinal (Abdomen) Inspection/Auscultation: + abdominal surgical incision (clean, dry) Percussion/Palpation: abdomen soft Discharge Data Allergies Allergy/AdvReac Type Severity Reaction Status Date / Time cefdinir [From Omnicef] Allergy Mild Rash Verified 10/03/21 06:04 Consultations 10/03/21 09:35 Consult Gynecology Routine Procedures Performed Operation Date: 10/03/21 08:20 <No data on this case meets the specified criteria> Operation Date: 10/04/21 10:40 Actual Procedures p Laparoscopic Appendectomy(Not Applicable) - Jono Hirsch, Ordered Studies 10/03/21 01:05 CT abd pelvis IV con only Urgent CT angio chest PE protocol Urgent 10/03/21 13:34 US pelvic complete Stat Hospital Course (1) Abdominal pain: 21 y/o female with abdominal pain for several weeks that localized to RLQ prompting her to come to the ED. STAT-rad report suggested acute appendicitis and she was admitted overnight with plan for laparoscopic appendectomy in the morning. In house radiology read questioned appendicitis and additional work-up was pursued. She was seen by Gynecology for possibility of PID and also because she had not had a post- visit. Pelvic U/S and exam were normal although swab results are still pending. After 36 hours of IV antibiotics her symptoms persisted and her white count remained elevated. She was taken to the operating room for laparoscopic appendectomy and was also found to have murky pelvic fluid and small bowel adhesions to the right ovary and cecum. She was returned to the surgical floor and started on doxycycline, Flagyl and ceftriaxone empirically. By the next morning her symptoms were improved, she was tolerating diet and was stable for discharge home on oral doxycycline and Flagyl. Total Time Total Time Spent Total Time Spent (In Minutes): 15 Discharge Plan Discharge Items Patient Disposition: Home - Self-Care Reason For Visit: APPENDICITIS Discharge Diagnosis: laparoscopic appendectomy Activity: Per Instructions section Lifting: No more than 10 pounds Bathing Comment: may shower; no soaking in tubs/pools Exercise/Sports: Wait until after follow-up appointment Driving/Machine Use: no driving while taking any narcotics for pain Non-emergency contact: Surgeon Call non-emergency contact if: you have any medication questions, your symptoms worsen, your pain is not controlled, your pain is concerning for you, you have a fever, your temperature is above 101.5, your wound has increased redness, your wound has increased drainage and your wound pain has increased Follow-up/Referrals: Jono Hirsch, DO [Surgeon] - 10/19/21 9:50 am () PCP,NO [Primary Care Provider] - Diet: Regular Addtl Attending Provider Instructions: Please complete the full course of antibiotic prescribed to you You can take Tylenol as directed on the bottle or ibuprofen 600 mg every 6 hours as needed for pain Pending Studies at Discharge: Yes Studies:: surgical pathology Stand-Alone Forms: My [facility], Work/School Release, Smoking Cessation Medications and DC Order Prescriptions: New metronidazole 500 mg tablet 500 mg PO BID 14 Days Qty: 28 RF: 0 doxycycline hyclate 100 mg tablet 100 mg PO BID 14 Days Qty: 28 RF: 0 Continued No Known Home Medications RF: 0 Discharge Orders: Discharge Order (Routine); Ordered 10/05/21 Ordered By: Dequan Arboleda/Other Patient Handouts: Appendectomy Admission Data Admit Date/Time: 10/03/21 03:17 Attending Provider: Jono Hirsch Admit Provider: Jono Hirsch Primary Care Provider: PCP,NO Other Providers: Earnest Avilez Other Interventions: Discharge Summary Assessment (RN) Last Done: 10/05/21 09:32 Coding Level of Care Code D/C DAY MANAGEMENT <30 MINS Diagnoses Abdominal pain R10.9
[2021-10-05] MEDS: cefTRIAXone SODIUM 1,000 MG in DEXTROSE 5% 50 ML IV SCH (11:53)
[2021-10-05 18:22] LABS: Chlamydia Trach RNA DETECTED (NOT DETECTED); GC (Neis gonorrhoeae) RNA NOT DETECTED (NOT DETECTED); Trichomonas vaginalis RNA NOT DETECTED (NOT DETECTED)
== END 2021-10-05 12:48 | disposition home or self-care (01) ==
LOC: ED 00:48 → 3E 00:48